=== PATIENT | male | born 1995 | race Caucasian/White ===

== ENCOUNTER 2018-05-18 13:34 | Emergency (ER) | payer MEDICAID ==
[~2018-05-18] VITALS: Ht 172.7 cm; Wt 62.6 kg
[2018-05-18 13:40] VITALS: BP 159/71
== END 2018-05-18 14:31 | disposition home or self-care (01) ==
LOC: ED 13:34
DX: H60.91 Unspecified otitis externa, right ear (principal); F41.9 Anxiety disorder, unspecified